=== PATIENT | female | born 1980 | race Caucasian/White ===

== ENCOUNTER 2021-10-26 20:32 | Emergency (ER) | payer SELFPAY ==
[2021-10-26] MEDS ORDERED: Sodium Chloride 0.9% 10 ML Syringe FLUSH PRN (22:01)
[2021-10-26] MEDS ORDERED: Nitroglycerin 0.4 MG Tab.SL SL PRN (22:01)
[2021-10-26] MEDS ORDERED: Furosemide 40 MG/4 ML VIAL IVPUSH ONE (22:01)
== END 2021-10-26 23:31 | disposition home or self-care (01) ==
LOC: JP.ED 20:32
DX: I50.23 Acute on chronic systolic (congestive) heart failure (principal); E66.9 Obesity, unspecified; Z68.33 Body mass index [BMI] 33.0-33.9, adult; Z72.0 Tobacco use; Z79.899 Other long term (current) drug therapy
CPT/HCPCS: 36415; 71046; 71046-26; 80048; 83880; 84484; 85025; 96374; 99284; 99285-25; J1940; J3490